=== PATIENT | female | born 1980 | race Caucasian/White ===

== ENCOUNTER → 2016-11-14 | Outpatient (CLI) | payer MEDICARE, OTHER ==
[2015-03-16 14:18] VITALS: BP 136/83
[~2016-11-14] MED LIST: ALPR0.5T PO; CARB100O PO; ESZO3TAB9 PO; ZOLP5TAB5 PO
[2016-11-14 10:56] LABS: HEMATOCRIT 37.3 % (36.0-47.0); HEMOGLOBIN 12.5 g/dL (12.0-15.5); RED BLOOD COUNT 4.2 x10^6/uL (3.50-5.40); RED CELL DISTRIBUTION WIDTH 12.5 % (11.5-14.5); WHITE BLOOD COUNT 6.4 x10^3/uL (4.0-11.0)
[2016-11-14 11:09] LABS: ALBUMIN 3.6 g/dL (3.4-5.0); ALBUMIN/GLOBULIN RATIO 1.1 (1.0-1.7); ALK PHOS 139 U/L (46-116); ALT (SGPT) 24 U/L (14-59); ANION GAP 8 (6-14); AST (SGOT) 13 U/L (15-37); BLOOD UREA NITROGEN 14 mg/dL (7-20); BUN/CREATININE RATIO 35 (6-20); CALCIUM 8.3 mg/dL (8.5-10.1); CARBON DIOXIDE 26 mmol/L (21-32); CHLORIDE 108 mmol/L (98-107); CREATININE 0.4 mg/dL (0.6-1.0); GFR 178.6; GLUCOSE 101 mg/dL (70-99); SODIUM 142 mmol/L (136-145); TOTAL BILIRUBIN 0.2 mg/dL (0.2-1.0); TOTAL PROTEIN 6.9 g/dL (6.4-8.2)
== END | disposition home or self-care (01) ==
LOC: LAB 10:31
PROVIDERS: ATTEND Family Medicine
DX: Z00.00 Encounter for general adult medical examination without abnormal findings (principal)
CPT/HCPCS: 36415; 80053; 80156; 85027

== ENCOUNTER 2019-02-11 11:31 | Emergency (ER) | payer MEDICARE, OTHER ==
[~2019-02-11] VITALS: Ht 154.9 cm; Wt 35.4 kg
[~2019-02-11 11:31] MED LIST changes: +ESZO3TAB28 PO; -ESZO3TAB9 PO
--- NOTE | 2019-02-11 11:52 | PHYS DOC ---
Past Medical History Past Medical History: Other Additional Past Medical Histor: CP Past Surgical History: No Surgical History Alcohol Use: None Drug Use: None Adult General Chief Complaint Chief Complaint: CHOKING HPI HPI Patient is a 39 year old female with history of cerebral palsy residing in an adult care facility who presents to the ED today to be evaluated for choking. Patient was being fed mac & cheese with hot dogs by the caregivers and she started coughing and gurgling choking on the food . Caregivers state they performed a Heimlich maneuver after swipping her mouth and noticing nothing. Caregivers in the ED giving us information. Patient is in no distress, no coughing noted. No gurgling. Review of Systems Review of Systems Constitutional: Denies fever or chills [] Eyes: Denies change in visual acuity, redness, or eye pain [] HENT: Denies nasal congestion or sore throat [] Respiratory: Reports choking. Denies shortness of breath [] Cardiovascular: No additional information not addressed in HPI [] GI: Denies abdominal pain, nausea, vomiting, bloody stools or diarrhea [] : Denies dysuria or hematuria [] Musculoskeletal: Denies back pain or joint pain [] Integument: Denies rash or skin lesions [] Neurologic: Denies headache, focal weakness or sensory changes [] All other systems were reviewed and found to be within normal limits, except as documented in this note. Allergies Allergies Allergies Coded Allergies Type Severity Reaction Last Updated Verified Penicillins Allergy Severe Hives 02/11/19 Yes phenobarbital Allergy Intermediate 03/16/15 Yes Physical Exam Physical Exam Constitutional: Well developed, well nourished, no acute distress, non-toxic appearance. [] HENT: Normocephalic, atraumatic, bilateral external ears normal, oropharynx moist, no oral exudates, nose normal. NO food in the mouth Eyes: PERRLA, EOMI, conjunctiva normal, no discharge. [] Neck: Normal range of motion, no tenderness, supple, no stridor. [] Cardiovascular:Heart rate regular rhythm, no murmur [] Lungs & Thorax: Bilateral breath sounds clear to auscultation [] Abdomen: Bowel sounds normal, soft, no tenderness, no masses, no pulsatile masses. [] Skin: Warm, dry, no erythema, no rash. [] Back: No tenderness, no CVA tenderness. [] Extremities: Contracted upper and lower extremities consistent with cerebral palsy. No tenderness, no cyanosis, no clubbing, ROM intact, no edema. [] Neurologic: Alert and oriented X 3, normal motor function, normal sensory function, no focal deficits noted. [] Psychologic: Affect normal, judgement normal, mood normal. [] Current Patient Data Vital Signs Vital Signs Date Time Temp Pulse Resp B/P (MAP) Pulse Ox O2 Delivery O2 Flow Rate FiO2 02/11/19 11:35 98.4 96 20 110/72 (85) 97 Room Air 98.4 Lab Values Laboratory Tests Test 02/11/19 12:28 02/11/19 12:40 White Blood Count 4.4 x10^3/uL (4.0-11.0) Red Blood Count 3.73 x10^6/uL (3.50-5.40) Hemoglobin 11.4 g/dL (12.0-15.5) L Hematocrit 33.2 % (36.0-47.0) L Mean Corpuscular Volume 89 fL (79-100) Mean Corpuscular Hemoglobin 31 pg (25-35) Mean Corpuscular Hemoglobin Concent 34 g/dL (31-37) Red Cell Distribution Width 13.3 % (11.5-14.5) Platelet Count 296 x10^3/uL (140-400) Neutrophils (%) (Auto) 51 % (31-73) Lymphocytes (%) (Auto) 40 % (24-48) Monocytes (%) (Auto) 6 % (0-9) Eosinophils (%) (Auto) 3 % (0-3) Basophils (%) (Auto) 0 % (0-3) Neutrophils # (Auto) 2.2 x10^3uL (1.8-7.7) Lymphocytes # (Auto) 1.7 x10^3/uL (1.0-4.8) Monocytes # (Auto) 0.3 x10^3/uL (0.0-1.1) Eosinophils # (Auto) 0.1 x10^3/uL (0.0-0.7) Basophils # (Auto) 0.0 x10^3/uL (0.0-0.2) Sodium Level 141 mmol/L (136-145) Potassium Level 3.7 mmol/L (3.5-5.1) Chloride Level 105 mmol/L (98-107) Carbon Dioxide Level 27 mmol/L (21-32) Anion Gap 9 (6-14) Blood Urea Nitrogen 25 mg/dL (7-20) H Creatinine 0.3 mg/dL (0.6-1.0) L Estimated GFR (Cockcroft-Gault) 245.2 BUN/Creatinine Ratio 83 (6-20) H Glucose Level 92 mg/dL (70-99) Calcium Level 9.0 mg/dL (8.5-10.1) Total Bilirubin 0.2 mg/dL (0.2-1.0) Aspartate Amino Transferase (AST) 12 U/L (15-37) L Alanine Aminotransferase (ALT) 19 U/L (14-59) Alkaline Phosphatase 87 U/L (46-116) Total Protein 6.4 g/dL (6.4-8.2) Albumin 3.5 g/dL (3.4-5.0) Albumin/Globulin Ratio 1.2 (1.0-1.7) Lipase 146 U/L (73-393) Urine Collection Type Unknown Urine Color Yellow Urine Clarity Clear Urine pH 6.0 Urine Specific Harmony 1.025 Urine Protein Negative mg/dL (NEG-TRACE) Urine Glucose (UA) Negative mg/dL (NEG) Urine Ketones (Stick) Negative mg/dL (NEG) Urine Blood Negative (NEG) Urine Nitrite Positive (NEG) Urine Bilirubin Negative (NEG) Urine Urobilinogen Dipstick 0.2 mg/dL (0.2 mg/dL) Urine Leukocyte Esterase Negative (NEG) Urine RBC 0 /HPF (0-2) Urine WBC 5-10 /HPF (0-4) Urine Bacteria Many /HPF (0-FEW) Laboratory Tests 02/11/19 12:28 Laboratory Tests 02/11/19 12:28 EKG EKG [] Radiology/Procedures Radiology/Procedures []PROCEDURE: KUBryn KUBryn, 02/11/2019: HISTORY: Choking on food There is a moderate amount stool scattered throughout the colon. The abdominal gas pattern is otherwise unremarkable. There is no evidence of organomegaly. A rim-like radiopacity overlying the right iliac bone raises the possibility of a gallstone in a low-lying gallbladder. An overlying artifact could also be giving this appearance. There is a moderate thoracolumbar scoliosis. IMPRESSION: 1. Increased stool throughout the colon. 2. Possible gallstone Electronically signed by: Jaime Canchola MD (02/11/2019 12:26 PM) [facility] DICTATED and SIGNED BY: JAIME CANCHOLA MD DATE: 02/11/19 1226 PROCEDURE: PORTABLE CHEST 1V PORTABLE CHEST 1V History: Cocaine on foot today. COMPARISON: None FINDINGS: Heart size is not grossly enlarged. Right convexity thoracolumbar scoliosis distorts the chest. No evidence of pneumothorax, pleural effusion or focal infiltrate. Bones appear intact. IMPRESSION: No evidence of focal consolidating infiltrate. Electronically signed by: Iker Santos MD (02/11/2019 12:10 PM) [facility] DICTATED and SIGNED BY: IKER SANTOS MD DATE: 02/11/19 1210 Course & Med Decision Making Course & Med Decision Making Pertinent Labs and Imaging studies reviewed. (See chart for details) Female with history of cerebral palsy who presents to the ED today to be evaluated for choking. Patient was being fed Mac and Cheese with hot dogs when she started choking. On arrival to the ED patient's airway is clear. Her vitals are stable with O2 sats 97% on room air. KUB and chest x-ray were negative for aspiration pneumonia, noted for constipation, CBC CMP is negative for acute results, urine analysis is noted for UTI. Prescription for Macrobid provided to parent. Discharged with parent. Dragon Disclaimer Dragon Disclaimer This electronic medical record was generated, in whole or in part, using a voice recognition dictation system. Departure Departure Impression: Primary Impression: Choking episode Additional Impressions: UTI (urinary tract infection) Constipation Disposition: 01 HOME, SELF-CARE Condition: STABLE Referrals: KATHLEEN LESLIE MD (PCP) followup in 1-2 weeks Patient Instructions: Choking, Adult, Urinary Tract Infection Additional Instructions: Rodney was evaluated for choking. X-rays were negative for aspiration pneumonia. She was noted to have constipation on x-ray. She also has urinary tract infection. We sent her home with antibiotics, ensure she completes them. Please ensure her food is the right consistency swallowing. Please ensure she is sitting up when being fed. Please follow-up with her own doctor in the course of next week. Scripts Nitrofurantoin Monohyd/M-Cryst (MACROBID 100 MG CAPSULE) 100 Mg Capsule 1 CAP PO BID, #14 CAP Prov: MONET FOX FIRER KILN 02/11/19 Problem Qualifiers Additional Impressions: UTI (urinary tract infection) Urinary tract infection type: acute cystitis Hematuria presence: without hematuria Qualified Codes: N30.00 - Acute cystitis without hematuria Constipation Constipation type: unspecified constipation type Qualified Codes: K59.00 - Constipation, unspecified MONET FOX FIRER KILN Feb 11, 2019 11:52
--- NOTE | 2019-02-11 12:13 | RAD ---
PORTABLE CHEST 1V History: Cocaine on foot today. COMPARISON: None FINDINGS: Heart size is not grossly enlarged. Right convexity thoracolumbar scoliosis distorts the chest. No evidence of pneumothorax, pleural effusion or focal infiltrate. Bones appear intact. IMPRESSION: No evidence of focal consolidating infiltrate. Electronically signed by: Iker Santos MD (02/11/2019 12:10 PM) [facility]
--- NOTE | 2019-02-11 12:29 | RAD ---
ERICK, 02/11/2019: HISTORY: Choking on food There is a moderate amount stool scattered throughout the colon. The abdominal gas pattern is otherwise unremarkable. There is no evidence of organomegaly. A rim-like radiopacity overlying the right iliac bone raises the possibility of a gallstone in a low-lying gallbladder. An overlying artifact could also be giving this appearance. There is a moderate thoracolumbar scoliosis. IMPRESSION: 1. Increased stool throughout the colon. 2. Possible gallstone Electronically signed by: Jaime Canchola MD (02/11/2019 12:26 PM) [facility]
[2019-02-11 12:50] LABS: BILIRUBIN,URINE NEGATIVE (NEG); CLARITY,URINE CLEAR; COLOR,URINE YELLOW; NITRITE,URINE POSITIVE (NEG); PROTEIN,URINE NEGATIVE (NEG-TRACE); UROBILINOGEN,URINE 0.2 mg/dL (0.2 mg/dL)
[2019-02-11 13:01] LABS: RBC,URINE 0 /HPF (0-2)
[2019-02-11 13:02] LABS: BACTERIA,URINE MANY /HPF (0-FEW)
[2019-02-11 13:22] LABS: BASO % 0 % (0-3); EOS # 0.1 x10^3/uL (0.0-0.7); EOS % 3 % (0-3); HEMATOCRIT 33.2 % (36.0-47.0); HEMOGLOBIN 11.4 g/dL (12.0-15.5); LYMPH # 1.7 x10^3/uL (1.0-4.8); LYMPH % 40 % (24-48); MEAN CORPUSCULAR HEMOGLOBIN 31 pg (25-35); MEAN CORPUSCULAR HGB CONC 34 g/dL (31-37); MEAN CORPUSCULAR VOLUME 89 fL (79-100); MONO # 0.3 x10^3/uL (0.0-1.1); MONO % 6 % (0-9); NEUT # 2.2 x10^3uL (1.8-7.7); NEUT % 51 % (31-73); PLATELET COUNT 296 x10^3/uL (140-400); RED BLOOD COUNT 3.73 x10^6/uL (3.50-5.40); RED CELL DISTRIBUTION WIDTH 13.3 % (11.5-14.5); WHITE BLOOD COUNT 4.4 x10^3/uL (4.0-11.0)
[2019-02-11 13:34] LABS: CREATININE 0.3 mg/dL (0.6-1.0); GFR 245.2; POTASSIUM 3.7 mmol/L (3.5-5.1)
[2019-02-11 13:36] VITALS: BP 98/71
[2019-02-11 13:41] LABS: ALBUMIN 3.5 g/dL (3.4-5.0); ALBUMIN/GLOBULIN RATIO 1.2 (1.0-1.7); TOTAL BILIRUBIN 0.2 mg/dL (0.2-1.0); TOTAL PROTEIN 6.4 g/dL (6.4-8.2)
[2019-02-11] MEDS ORDERED: NITR100C62 PO (14:08)
== END 2019-02-11 14:28 | disposition home or self-care (01) ==
LOC: ER 11:31
DX: T17.828A Food in other parts of respiratory tract causing other injury, initial encounter (principal); N30.00 Acute cystitis without hematuria; K59.00 Constipation, unspecified; Z88.0 Allergy status to penicillin; Z88.8 Allergy status to other drugs, medicaments and biological substances; Y92.89 Other specified places as the place of occurrence of the external cause
CPT/HCPCS: 36415; 71045; 74018; 80053; 81001; 83690; 85025; 99285; P9612